=== PATIENT | female | born 1975 | race African-American/Black ===

== ENCOUNTER 2019-04-29 15:10 | Inpatient (IN) | payer MEDICAID, MEDICARE ==
[~2019-04-29] VITALS: Ht 175.3 cm; Wt 68.1 kg
[2019-04-29 16:39] LABS: HEMATOCRIT 42.4 % (36.0-47.0); HEMOGLOBIN 13.9 g/dl (12.0-15.5); MEAN CORPUSCULAR HEMOGLOBIN 28.6 pg (27.0-33.0); MEAN CORPUSCULAR HGB CONC 32.8 g/dl (32.0-36.5); MEAN CORPUSCULAR VOLUME 87.2 fl (80.0-96.0); PLATELET COUNT, AUTOMATED 230 10^3/uL (150-450); RED BLOOD COUNT 4.86 10^6/uL (4.00-5.40); WHITE BLOOD COUNT 7.5 10^3/uL (4.0-10.0)
[2019-04-29 17:07] LABS: HCG, SERUM QUALITATIVE NEGATIVE (NEGATIVE)
[2019-04-29 17:08] LABS: AMPHETAMINES LEVEL URINE NEGATIVE (NEGATIVE); BARBITURATES URINE NEGATIVE (NEGATIVE); BENZODIAZEPINES URINE NEGATIVE (NEGATIVE); CANNABINOIDS URINE NEGATIVE (NEGATIVE); COCAINE METABOLITE URINE NEGATIVE (NEGATIVE); METHADONE URINE NEGATIVE (NEGATIVE); OPIATES URINE NEGATIVE (NEGATIVE); PHENCYCLIDINE URINE NEGATIVE (NEGATIVE)
[2019-04-29 17:20] LABS: ACETAMINOPHEN LEVEL < 2.0 UG/ML (10.0-30.0); ALBUMIN 4.1 GM/DL (3.2-5.2); ALT/SGPT 16 U/L (12-78); BILIRUBIN,DIRECT 0.1 MG/DL (0.0-0.2); BILIRUBIN,TOTAL 0.4 MG/DL (0.2-1.0); BLOOD UREA NITROGEN 7 MG/DL (7-18); CALCIUM LEVEL 9.1 MG/DL (8.5-10.1); CARBON DIOXIDE LEVEL 27 MEQ/L (21-32); CHLORIDE LEVEL 106 MEQ/L (98-107); CREATININE FOR GFR 0.78 MG/DL (0.55-1.30); ETHYL ALCOHOL (ETHANOL) < 0.003 % (0.000-0.010); GLOMERULAR FILTRATION RATE > 60.0 (>58); GLUCOSE, FASTING 89 MG/DL (70-100); POTASSIUM SERUM 3.2 MEQ/L (3.5-5.1); SALICYLATE LEVEL < 1.7 MG/DL (5.0-30.0); SODIUM LEVEL 140 MEQ/L (136-145); THYROID STIMULATING HORMONE 0.579 uIU/ML (0.358-3.740); TOTAL PROTEIN 7.4 GM/DL (6.4-8.2)
[2019-04-29] MEDS ORDERED: POTASSIUM CHLORIDE 10 MEQ SR TABLET PO ONE (17:45)
[2019-04-29] MEDS ORDERED: MAALOX 30 ML SUSP *UDC PO PRN (21:15)
[2019-04-29 23:42] VITALS: BP 127/76
[2019-04-30 06:39] VITALS: BP 122/77
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
[2019-04-30] MEDS ORDERED: PALIPERIDONE 3 MG ER TAB (INVEGA) PO ONE (12:00)
--- NOTE | 2019-04-30 16:15 | HPEPDOC ---
General Date of Admission Apr 29, 2019 at 21:09 Date of Service: Apr 30, 2019 Chief Complaint The patient is a 44-year-old female admitted with a reason for visit of Bipolar Disorder. Source: Patient, Old records Exam Limitations: No limitations Associated Symptoms: Denies Symptoms History of Present Illness Ms. East is a 44-year-old female who is admitted to the behavioral health unit with a diagnosis of schizophrenia. Patient reported that she is only here because she was arguing with her brother and he called the police on her. She stated that when asked, she told the police the she is only human and at times she does have suicidal ideation as a result, she was brought to [facility] ED for evaluation. Patient denies any history of mental illness. Through much prompting she eventually reveals that she has a diagnosis of Hodgkin's lymphoma. She was living in [place] where she received treatment. She reported that she had 6 chemotherapy treatments and then decided to discontinue them. When asked, she says, "I guess I'm in remission." She also reports a diagnosis of multiple sclerosis, unfortunately, she is not able to provide me with any details. She also denies having a neurologist. Unfortunately, Ms. East is a very poor historian. She has agreed to sign a release for information, so the hospital may gain, her past medical history and refer her to/set her up with primary care. Home Medications Unable to Obtain Active Prescriptions or Reported Meds Allergies Coded Allergies: No Known Allergies (Unverified , 04/29/19) Past Medical History Medical History Hodgkin's lymphoma. Multiple sclerosis Surgical History Permacath for chemotherapy Myomectomy 7/8 years ago Bunionectomy Family History Significant Family History: Diabetes (possibly sister) Unknown to patient Social History * Smoker: Denies Alcohol: occationally Drugs: marijuana A-FIB/CHADSVASC A-FIB History Current/History of A-Fib/PAF?: No Current PO Anticoag Therapy: No Review of Systems Constitutional: Denies: Chills, Fever, Night Sweats Eyes: Denies: Pain ENT: Denies: Head Aches Skin: Denies: Rash Pulmonary: Denies: Dyspnea, Cough Cardiovascular: Denies: Chest Pain, Palpitations, Orthopnea, Paroxysmal Noc. Dyspnea, Lt Headedness Gastrointestinal: Denies: Nausea, Vomiting, Abdominal Pain, Diarrhea, Constipation Genitourinary: Denies: Dysuria Hematologic: Denies: Bruising Musculoskeletal: Denies: Neck Pain, Back Pain, Joint Pain, Muscle Pain, Spasms Neurological: Denies: Weakness, Numbness, Change in speech, Confusion Psych: Reports: Mood Normal; Denies: Depression, Memory Issues, Thoughts of Self Harm, Thoughts of Harming Other Physical Examination General Exam: Positive: Alert, Cooperative, No Acute Distress Eye Exam: Positive: PERRLA, Conjunctiva & lids normal, EOMI; Negative: Sclera icteric ENT Exam: Positive: Atraumatic, Mucous membr. moist/pink, Pharynx Normal Neck Exam: Positive: Supple; Negative: thyromegaly Chest Exam: Positive: Clear to auscultation, Normal air movement Heart Exam: Positive: Rate Normal, Regular Rhythm, Normal S1, Normal S2; Negative: Murmurs, Rubs Telemetry: Positive: No significant arrhythmia Abdomen Exam: Positive: Normal bowel sounds, Soft; Negative: Tenderness Extremity Exam: Positive: Normal pulses; Negative: Clubbing, Cyanosis, Edema Skin Exam: Positive: Nl turgor and temperature, Other skin issue (permacath in place on right side of the chest) Neuro Exam: Positive: Normal Gait, Normal Speech, Cranial Nerves 3-12 NL Psych Exam: Positive: Oriented x 3; Negative: Mood NL (some elation) Vital Signs Vital Signs Date Time Temp Pulse Resp B/P (MAP) Pulse Ox O2 Delivery O2 Flow Rate FiO2 04/30/19 06:39 97.9 104 12 122/77 (92) 04/29/19 23:42 98 Room Air Laboratory Data Labs 24H Laboratory Tests 2 04/29/19 16:30: Nucleated Red Blood Cells % (auto) 0.0, Anion Gap 7L, Glomerular Filtration Rate > 60.0, Calcium Level 9.1, Total Bilirubin 0.4, Direct Bilirubin 0.1, Aspartate Amino Transf (AST/SGOT) 8, Alanine Aminotransferase (ALT/SGPT) 16, Alkaline Phosphatase 65, Total Protein 7.4, Albumin 4.1, Albumin/Globulin Ratio 1.24, Thyroid Stimulating Hormone (TSH) 0.579, Human Chorionic Gonadotropin, Qual NEGATIVE, Salicylates Level < 1.7L, Urine Opiates Screen NEGATIVE, Urine Metha done Screen NEGATIVE, Acetaminophen Level < 2.0L, Urine Barbiturates Screen NEGATIVE, Urine Phencyclidine Screen NEGATIVE, Urine Amphetamines Screen NEGATIVE, Urine Benzodiazepines Screen NEGATIVE, Urine Cocaine Metabolite Screen NEGATIVE, Urine Cannabinoids Screen NEGATIVE, Ethyl Alcohol Level < 0.003 CBC/BMP Laboratory Tests 04/29/19 16:30 Assessment/Plan #1. Schizophrenia. Management per psychiatry. #2. Reported history of Hodgkin's lymphoma Patient is unable to report to me the course of her treatment any time etc. I am concerned she may be possibly lost to follow-up with her oncologist. I have asked for her permission to obtain and review her records and she has agreed to sign a consent release form. I have spoken with her discharge team about this. If we are able to obtain her records, proceed with appropriate referrals on discharge. Otherwise, we are able to at least refer to PCP. #3. Reported diagnosis of multiple sclerosis. As above Medicine will sign off at this time. Please notify me if we are able to obtain the patient's past medical records. Please reconsult as needed. Plan / VTE VTE Prophylaxis Ordered?: No MINO MCCORMICK PA-C Apr 30, 2019 16:15
[2019-04-30 17:51] VITALS: BP 130/67
[2019-04-30] MEDS: traZODone 50 MG TAB PO PRN (21:14)
[2019-04-30] MEDS: PALIPERIDONE 3 MG ER TAB (INVEGA) PO SCH (21:15)
[2019-04-30] MEDS: MOM 30ML SUSPENSION UDC PO PRN (21:15)
[2019-05-01 06:17] VITALS: BP 124/68
[2019-05-01] MEDS: PALIPERIDONE 3 MG ER TAB (INVEGA) PO SCH ×2 (10:09→21:46)
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
[2019-05-01 15:34] VITALS: BP 128/80
[2019-05-02 06:28] VITALS: BP 104/66
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
[2019-05-02] MEDS: PALIPERIDONE 3 MG ER TAB (INVEGA) PO SCH ×2 (10:09→20:57)
[2019-05-02 16:00] VITALS: BP 131/84
[2019-05-02] MEDS: traZODone 50 MG TAB PO PRN (20:57)
[2019-05-03 06:43] VITALS: BP 132/76
[2019-05-03] MEDS: PALIPERIDONE 3 MG ER TAB (INVEGA) PO SCH ×2 (09:32→20:28)
[2019-05-03] MEDS: ACETAMINOPHEN TAB 650MG DOSE (2X325MG) PO PRN (10:12)
[2019-05-03 17:30] VITALS: BP 124/83
[2019-05-03] MEDS: traZODone 50 MG TAB PO PRN (20:28)
[2019-05-04 06:28] VITALS: BP 107/52
[2019-05-04] MEDS: PALIPERIDONE 3 MG ER TAB (INVEGA) PO SCH ×2 (09:25→20:15)
[2019-05-04 15:00] VITALS: BP 143/80
[2019-05-04] MEDS: ACETAMINOPHEN TAB 650MG DOSE (2X325MG) PO PRN (18:36)
[2019-05-04] MEDS: traZODone 50 MG TAB PO PRN (20:15)
[2019-05-05 06:10] VITALS: BP 140/62
[2019-05-05] MEDS: PALIPERIDONE 3 MG ER TAB (INVEGA) PO SCH ×2 (08:42→20:50)
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
[2019-05-05] MEDS ORDERED: PALIPERIDONE PALMITATE 234MG/1.5ML INJ (INVEGA)(J2426)(FREE PSY INPT ONLY) IM ONE (10:30)
[2019-05-05 16:00] VITALS: BP 133/79
[2019-05-05] MEDS: traZODone 50 MG TAB PO PRN (20:51)
[2019-05-06 06:25] VITALS: BP 98/62
[2019-05-06] MEDS: PALIPERIDONE 3 MG ER TAB (INVEGA) PO SCH ×2 (08:17→20:46)
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
[2019-05-06] MEDS: OLANZapine ORAL DISINTEGRATING TAB 5MG PO PRN (13:17)
[2019-05-06 16:04] VITALS: BP 142/80
[2019-05-06] MEDS: traZODone 50 MG TAB PO PRN (20:46)
[2019-05-07 06:27] VITALS: BP 142/72
[2019-05-07] MEDS: PALIPERIDONE 3 MG ER TAB (INVEGA) PO SCH ×2 (08:05→20:28)
[2019-05-07] MEDS: OLANZapine ORAL DISINTEGRATING TAB 5MG PO PRN ×2 (08:06→20:29)
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
[2019-05-07 16:05] VITALS: BP 120/67
[2019-05-07] MEDS: traZODone 50 MG TAB PO PRN (20:28)
[2019-05-08] MEDS: MOM 30ML SUSPENSION UDC PO PRN (00:46)
[2019-05-08 06:33] VITALS: BP 123/73
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
[2019-05-08] MEDS: PALIPERIDONE 3 MG ER TAB (INVEGA) PO SCH ×2 (09:53→20:21)
[2019-05-08] MEDS: OLANZapine ORAL DISINTEGRATING TAB 5MG PO PRN ×2 (09:55→20:21)
[2019-05-08] MEDS ORDERED: PALIPERIDONE PALMITATE 156MG/1ML INJ(INVEGA)(J2426)(FREE PSY INPT ONLY) IM ONE (10:30)
[2019-05-08 16:00] VITALS: BP 135/74
[2019-05-08] MEDS: traZODone 100 MG TAB PO PRN (20:21)
[2019-05-09 06:24] VITALS: BP 115/72
[2019-05-09] MEDS: OLANZapine ORAL DISINTEGRATING TAB 5MG PO PRN ×2 (08:03→18:46)
[2019-05-09] MEDS: PALIPERIDONE 3 MG ER TAB (INVEGA) PO SCH ×2 (08:04→20:32)
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
[2019-05-09 16:26] VITALS: BP 131/67
[2019-05-09] MEDS: traZODone 100 MG TAB PO PRN (20:32)
[2019-05-10 06:16] VITALS: BP 110/57
[2019-05-10] MEDS: PALIPERIDONE 3 MG ER TAB (INVEGA) PO SCH ×2 (08:11→20:32)
[2019-05-10 16:00] VITALS: BP 120/69
[2019-05-10] MEDS: traZODone 100 MG TAB PO PRN (20:32)
[2019-05-11 06:13] VITALS: BP 142/86
[2019-05-11] MEDS: PALIPERIDONE 3 MG ER TAB (INVEGA) PO SCH ×2 (08:01→20:28)
[2019-05-11 16:08] VITALS: BP 130/73
[2019-05-12 06:50] VITALS: BP 111/73
[2019-05-12] MEDS ORDERED: PALI1TAB2 PO (09:02)
[2019-05-12] MEDS ORDERED: INVE234I IM (09:02)
[2019-05-12] MEDS ORDERED: TRAZ-257 PO (09:02)
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
[2019-05-12] MEDS: PALIPERIDONE 3 MG ER TAB (INVEGA) PO SCH (09:07)
== END 2019-05-12 12:40 | disposition home or self-care (01) | DRG 885 ==
LOC: M ED 15:10 → M ED INP 21:09 → M PSY 23:27
PROVIDERS: ADMIT Psychiatry & Neurology Psychiatry; ATTEND Psychiatry & Neurology Psychiatry
DX: F20.0 Paranoid schizophrenia (principal); Z85.79 Personal history of other malignant neoplasms of lymphoid, hematopoietic and related tissues

== ENCOUNTER 2019-05-26 12:57 | Emergency (ER) | payer MEDICARE ==
[~2019-05-26] VITALS: Ht 175.3 cm; Wt 72.5 kg
[~2019-05-26 12:57] MED LIST: INVE234I IM; PALI1TAB2 PO; TRAZ-257 PO; VIST50CA PO
[2019-05-26 12:58] VITALS: BP 122/83
[2019-05-26 13:42] VITALS: O2SAT 100
[2019-05-26] MEDS ORDERED: CIPR-249 PO (14:20)
== END 2019-05-26 14:14 | disposition home or self-care (01) ==
LOC: M ED 12:57
DX: B34.9 Viral infection, unspecified (principal); R35.0 Frequency of micturition; Z20.828 Contact with and (suspected) exposure to other viral communicable diseases; G35 Multiple sclerosis; F20.9 Schizophrenia, unspecified; F32.9 Major depressive disorder, single episode, unspecified; Z79.899 Other long term (current) drug therapy
CPT/HCPCS: 81001; 87086; 87486; 87581; 87633; 87798; 99284; U0002